=== PATIENT | female | born 1940 | race Caucasian/White ===

== ENCOUNTER 2021-08-01 09:45 | Outpatient (CLI) | payer MEDICARE ==
[2021-08-01 23:17] LABS: SARS-CoV-2 PCR by NAA Not Detected (NotDetected)
== END 2021-08-01 09:46 | disposition home or self-care (01) ==
LOC: CSHLAB 09:45
PROVIDERS: ATTEND Internal Medicine Critical Care Medicine
DX: Z01.812 Encounter for preprocedural laboratory examination (principal); Z20.822 Contact with and (suspected) exposure to COVID-19
CPT/HCPCS: U0003; U0005

== ENCOUNTER 2021-08-06 09:29 | Outpatient (CLI) | payer MEDICARE, BC | END 2021-08-06 09:30 | disposition home or self-care (01) | LOC: CSHCP 09:29 | PROVIDERS: ATTEND Internal Medicine Critical Care Medicine | DX: J84.10 Pulmonary fibrosis, unspecified (principal) | CPT/HCPCS: 94060; 94726; 94729; 94760 ==

== ENCOUNTER 2021-10-20 10:04 | Outpatient (CLI) | payer MEDICARE, BC ==
[2021-10-20 17:30] LABS: SARS-CoV-2 PCR by NAA Not Detected (NotDetected)
== END 2021-10-20 10:05 | disposition home or self-care (01) ==
LOC: CSHLAB 10:04
PROVIDERS: ATTEND Internal Medicine Cardiovascular Disease
DX: Z20.822 Contact with and (suspected) exposure to COVID-19 (principal)
CPT/HCPCS: U0003; U0005

== ENCOUNTER 2021-10-22 11:53 | Day surgery (SDC) | payer MEDICARE, BC ==
[2021-10-22 12:56] VITALS: BP 170/72; TEMP 97.8
[2021-10-22] MEDS ORDERED: FLU VACC QS2021-22(65YR UP)/PF 240 MCG/0.7 ML SYRINGE IM ONE (13:15)
== END 2021-10-22 15:09 | disposition home or self-care (01) ==
LOC: CSHSDC 11:53
PROVIDERS: ATTEND Internal Medicine Cardiovascular Disease
DX: I34.0 Nonrheumatic mitral (valve) insufficiency (principal); I25.10 Atherosclerotic heart disease of native coronary artery without angina pectoris; I10 Essential (primary) hypertension; E78.5 Hyperlipidemia, unspecified; I27.20 Pulmonary hypertension, unspecified; G47.30 Sleep apnea, unspecified; E10.9 Type 1 diabetes mellitus without complications; Z79.899 Other long term (current) drug therapy; Z79.82 Long term (current) use of aspirin; Z79.4 Long term (current) use of insulin
CPT/HCPCS: 93312

== ENCOUNTER 2022-05-29 14:24 | Inpatient (IN) | payer MEDICARE, BC ==
[2022-05-29] MEDS ORDERED: Adenosine 6 MG/2 ML VIAL ONE (14:41)
[2022-05-29] MEDS ORDERED: Midazolam HCl 2 mg/2 ml Vial ONE ×2 (14:53→16:09)
[2022-05-29 15:04] LABS: #Basophils 0.1 10x3/uL (0.0-0.2); #Monocytes 0.6 10x3/uL (0.0-1.1); #Neutrophils 6.5 10x3/uL (1.5-8.4); %Basophils 0.5 % (0.0-2.0); %Eosinophils 0.2 % (0.0-6.0); %Lymphocytes 21.6 % (18.0-47.0); %Monocytes 6.1 % (0.0-10.0); %Neutrophils 71.2 % (40.0-75.0); Mean Corpuscular HGB CONC 31.6 g/dL (32.0-36.0); Mean Corpuscular Volume 79.2 fl (81.6-98.3); Mean Platelet Volume 11.7 fl (7.4-10.4); Platelet Count 212 10x3/uL (150-450); RBC Distribution Width 15.8 % (11.5-14.5); White Blood Cell (WBC) Count 9.2 10x3/uL (3.5-10.5)
[2022-05-29 15:05] LABS: ALT (SGPT) 16 U/L (8-55); AST (SGOT) 25 U/L (5-34); Albumin 4.6 g/dL (3.4-4.8); Alkaline Phosphatase 67 U/L (40-110); Anion Gap 15 mmol/L (10-20); BUN (Urea Nitrogen) 21 mg/dL (9.8-20.1); Bilirubin, Total 0.8 mg/dL (0.2-1.2); Calc. Creatinine Clearance 0 mL/min (70-130); Calcium 9.4 mg/dL (7.8-10.44); Carbon Dioxide 22 mmol/L (23-31); Chloride 103 mmol/L (98-107); Estimated GFR 75; Globulin 2.9 g/dL (2.4-3.5); Glucose 78 mg/dL (83-110); Potassium 4.1 mmol/L (3.5-5.1); Protein, Total 7.5 g/dL (5.8-8.1); Sodium 136 mmol/L (136-145)
[2022-05-29] MEDS ORDERED: Amiodarone 150 MG/3 ML VIAL ONE ×2 (15:18→16:12)
[2022-05-29] MEDS ORDERED: Amiodarone In Dextrose 200 ML ONE (15:40)
[2022-05-29] MEDS ORDERED: Diltiazem 125 MG/25 ML ONE (16:31)
[2022-05-29 16:56] LABS: CKMB 4.4 ng/mL (0-6.6); Magnesium 1.8 mg/dL (1.6-2.6)
[2022-05-29] MEDS ORDERED: Aspirin 325 MG TAB ONE (17:07)
[2022-05-29 17:25] LABS: Troponin I 0.043 ng/mL (< 0.028)
[2022-05-29 18:06] VITALS: BMI 28.3
[2022-05-29] MEDS ORDERED: Dextrose 50% Abboject 50 ML SYRINGE SLOW IVP PRN (18:32)
[2022-05-29] MEDS ORDERED: Acetaminophen 325 MG TAB PO PRN (18:32)
[2022-05-29] MEDS ORDERED: Dextrose 5% in Water 1,000 ML IV PRN (18:32)
[2022-05-29] MEDS ORDERED: Ondansetron ODT 4 MG TAB PO PRN (18:32)
[2022-05-29] MEDS ORDERED: Acetaminophen 650 MG Suppository PR PRN (18:32)
[2022-05-29] MEDS ORDERED: Ondansetron PF 4 MG/2 ML Vial IVP PRN (18:32)
[2022-05-29] MEDS ORDERED: Adenosine 6 MG/2 ML VIAL IVP PRN (18:35)
[2022-05-29] MEDS ORDERED: Adenosine 6 MG/2 ML VIAL IVP SCH (18:45)
[2022-05-29] MEDS ORDERED: Digoxin 0.5 MG/2 ML AMP SLOW IVP PRN (19:32)
[2022-05-29] MEDS: Sodium Chloride 0.9% 1,000 ML IV SCH (19:44)
[2022-05-29] MEDS ORDERED: Diltiazem 125 MG, Admixture Fee 1 EACH in Sodium Chloride 0.9% 100 ML IVPB SCH (19:45)
[2022-05-29] MEDS: Apixaban 5 MG TAB PO SCH (20:08)
[2022-05-29 20:20] LABS: Troponin I 0.053 ng/mL (< 0.028)
[2022-05-29 20:33] LABS: Free T4 (Free Thyroxine) 1.14 ng/dL (0.70-1.48); Thyroid Stimulating Hormone 1.1166 uIU/mL (0.35-4.94)
[2022-05-29 22:25] LABS: SARS-CoV-2 NAA Rapid Test Not Detected (NotDetected)
[2022-05-30 04:17] LABS: Anion Gap 20 mmol/L (10-20); BUN (Urea Nitrogen) 14 mg/dL (9.8-20.1); Calc. Creatinine Clearance 72 mL/min (70-130); Calcium 8.7 mg/dL (7.8-10.44); Carbon Dioxide 17 mmol/L (23-31); Cardiac Risk 2.2 (Less than 4.5); Chloride 104 mmol/L (98-107); Cholesterol 108 mg/dl (< 200 Desired); Estimated GFR 81; Glucose 251 mg/dL (83-110); HDL Cholesterol 49 mg/dL (>60 Neg Risk); LDL Cholesterol, Calculated 48 mg/dL; Potassium 4.6 mmol/L (3.5-5.1); Sodium 136 mmol/L (136-145); Triglycerides 53 mg/dL (Less than 150)
[2022-05-30] MEDS: Nitroglycerin 2% Ointment 1 INCH/1 GM Packet TOP SCH ×3 (06:04→21:24)
[2022-05-30] MEDS ORDERED: Aspirin Chewable 81 MG TAB PO SCH (09:00)
[2022-05-30] MEDS ORDERED: DAPAGLIFLOZIN PROPANEDIOL 5 MG PO SCH (09:00)
[2022-05-30] MEDS: HumaLOG 300 UNITS/3 ML VIAL SC PRN ×3 (09:01→21:25)
[2022-05-30] MEDS: Sodium Chloride 0.9% 1,000 ML IV SCH ×2 (09:45→14:04)
[2022-05-30] MEDS ORDERED: Enoxaparin Sodium 80 MG/0.8 ML SYRINGE SC SCH ×3 (10:00→21:00)
[2022-05-30] MEDS: DULoxetine 30 MG CAP PO SCH (10:47)
[2022-05-30] MEDS: Apixaban 5 MG TAB PO SCH ×2 (10:47→21:24)
[2022-05-30] MEDS: Aluminum & Magnesium Hydroxide 60 ML, Lidocaine 2% Viscous Solution 30 ML, diphenhydrAM... SSW SCH ×2 (15:30→21:25)
[2022-05-31] MEDS: HumaLOG 300 UNITS/3 ML VIAL SC PRN (05:33)
[2022-05-31] MEDS: Nitroglycerin 2% Ointment 1 INCH/1 GM Packet TOP SCH ×2 (05:34→13:35)
[2022-05-31] MEDS: Sodium Chloride 0.9% 1,000 ML IV SCH (05:47)
[2022-05-31] MEDS ORDERED: HumaLOG 300 UNITS/3 ML VIAL SC PRN (08:15)
[2022-05-31] MEDS: Aluminum & Magnesium Hydroxide 60 ML, Lidocaine 2% Viscous Solution 30 ML, diphenhydrAM... SSW SCH ×2 (08:28→13:35)
[2022-05-31] MEDS: DULoxetine 30 MG CAP PO SCH (08:28)
[2022-05-31] MEDS: Apixaban 5 MG TAB PO SCH (08:28)
[2022-05-31] MEDS ORDERED: Aspirin 300 MG Suppository PR PRN (09:00)
[2022-05-31] MEDS ORDERED: Aspirin 81 mg Enteric Coated Tablet PO SCH (09:00)
[2022-05-31] MEDS ORDERED: Pantoprazole 40 MG VIAL IVP SCH (09:00)
[2022-05-31] MEDS ORDERED: Atorvastatin Calcium 20 MG TAB PO SCH (09:00)
[2022-05-31 11:27] VITALS: TEMP 98.5
[2022-05-31 15:32] VITALS: BP 116/57
== END 2022-05-31 15:05 | disposition home or self-care (01) | DRG 309 ==
LOC: CSHERS 14:24 → CSHICU 16:40 → CSHTELE 05-30 15:50
PROVIDERS: ADMIT Family Medicine; ATTEND Family Medicine
PROC: 5A2204Z Restoration of Cardiac Rhythm, Single (ICD-10-PCS; principal; 2022-05-29)
DX: I47.1 Supraventricular tachycardia (principal); I24.8 Other forms of acute ischemic heart disease; I48.91 Unspecified atrial fibrillation; I47.2 Ventricular tachycardia; Z20.822 Contact with and (suspected) exposure to COVID-19; E11.9 Type 2 diabetes mellitus without complications; I49.3 Ventricular premature depolarization; I25.10 Atherosclerotic heart disease of native coronary artery without angina pectoris; I10 Essential (primary) hypertension; Z96.652 Presence of left artificial knee joint; E78.5 Hyperlipidemia, unspecified; Z88.8 Allergy status to other drugs, medicaments and biological substances; Z79.82 Long term (current) use of aspirin; Z79.899 Other long term (current) drug therapy; Z79.4 Long term (current) use of insulin; Z95.5 Presence of coronary angioplasty implant and graft; Z90.49 Acquired absence of other specified parts of digestive tract; Z90.89 Acquired absence of other organs; Z79.01 Long term (current) use of anticoagulants; I25.2 Old myocardial infarction; Z98.41 Cataract extraction status, right eye; Z98.42 Cataract extraction status, left eye
CPT/HCPCS: 36415; 36416; 71045; 80048; 80053; 80061; 82553; 83735; 83880; 84439; 84443; 84481; 84484; 85025; 92950; 93005; 93010; 96365; 96366; 96368; 96375; 96376; C9113; J0153; J0282; J1650; J1815; J2250; J2405; J3490; J7050; Q0162; Q0163; U0002

== ENCOUNTER 2022-06-03 09:50 | Emergency (ER) | payer MEDICARE, BC ==
[2022-06-03 10:42] LABS: #Eosinphils 0.1 10x3/uL (0.0-0.5); #Monocytes 0.3 10x3/uL (0.0-1.1); #Neutrophils 3.4 10x3/uL (1.5-8.4); %Basophils 0.6 % (0.0-2.0); %Lymphocytes 22.6 % (18.0-47.0); %Monocytes 6.7 % (0.0-10.0); %Neutrophils 67.7 % (40.0-75.0); Hemoglobin 11.9 g/dL (12.0-15.5); Mean Corpuscular HGB CONC 31.5 g/dL (32.0-36.0); Mean Corpuscular Hemoglobin 24.9 pg (27.0-33.0); Mean Corpuscular Volume 79.1 fl (81.6-98.3); Mean Platelet Volume 11.7 fl (7.4-10.4); Platelet Count 175 10x3/uL (150-450); Red Blood Cell (RBC) Count 4.78 10x6/uL (3.90-5.03)
[2022-06-03 10:46] LABS: ALT (SGPT) 34 U/L (8-55); AST (SGOT) 49 U/L (5-34); Albumin 4.1 g/dL (3.4-4.8); Alkaline Phosphatase 78 U/L (40-110); Anion Gap 14 mmol/L (10-20); BUN (Urea Nitrogen) 13 mg/dL (9.8-20.1); Bilirubin, Total 0.8 mg/dL (0.2-1.2); Calc. Creatinine Clearance 0 mL/min (70-130); Calcium 9.2 mg/dL (7.8-10.44); Carbon Dioxide 27 mmol/L (23-31); Chloride 102 mmol/L (98-107); Estimated GFR 76; Globulin 2.3 g/dL (2.4-3.5); Glucose 216 mg/dL (83-110); Potassium 3.9 mmol/L (3.5-5.1); Protein, Total 6.4 g/dL (5.8-8.1); Sodium 139 mmol/L (136-145)
== END 2022-06-03 13:38 | disposition home or self-care (01) ==
LOC: CSHERS 09:50
DX: R07.9 Chest pain, unspecified (principal); I25.10 Atherosclerotic heart disease of native coronary artery without angina pectoris; I48.91 Unspecified atrial fibrillation; E11.9 Type 2 diabetes mellitus without complications
CPT/HCPCS: 36416; 71045; 80053; 84484; 85025; 93005

== ENCOUNTER 2022-06-16 11:32 | Inpatient (IN) | payer MEDICARE, BC ==
[2022-06-16 12:09] LABS: #Eosinphils 0.1 10x3/uL (0.0-0.5); #Monocytes 0.7 10x3/uL (0.0-1.1); #Neutrophils 4.3 10x3/uL (1.5-8.4); %Basophils 0.5 % (0.0-2.0); %Lymphocytes 29.5 % (18.0-47.0); %Monocytes 9.2 % (0.0-10.0); %Neutrophils 59.3 % (40.0-75.0); Hemoglobin 11.5 g/dL (12.0-15.5); Mean Corpuscular Hemoglobin 24.4 pg (27.0-33.0); Mean Corpuscular Volume 78.6 fl (81.6-98.3); Mean Platelet Volume 11.4 fl (7.4-10.4); Platelet Count 250 10x3/uL (150-450); RBC Distribution Width 17.2 % (11.5-14.5); Red Blood Cell (RBC) Count 4.72 10x6/uL (3.90-5.03); White Blood Cell (WBC) Count 7.3 10x3/uL (3.5-10.5)
[2022-06-16] MEDS ORDERED: Diltiazem 125 MG in Sodium Chloride 0.9% 100 ML IVPB SCH (12:15)
[2022-06-16 12:16] LABS: ALT (SGPT) 17 U/L (8-55); AST (SGOT) 21 U/L (5-34); Albumin 4.1 g/dL (3.4-4.8); Alkaline Phosphatase 77 U/L (40-110); Anion Gap 14 mmol/L (10-20); BUN (Urea Nitrogen) 14 mg/dL (9.8-20.1); Bilirubin, Total 0.8 mg/dL (0.2-1.2); CK (CPK) 97 U/L (29-168); Calc. Creatinine Clearance 0 mL/min (70-130); Calcium 9.2 mg/dL (7.8-10.44); Carbon Dioxide 24 mmol/L (23-31); Chloride 104 mmol/L (98-107); Estimated GFR 81; Globulin 2.7 g/dL (2.4-3.5); Glucose 108 mg/dL (83-110); Lipase 8 U/L (8-78); Potassium 4.1 mmol/L (3.5-5.1); Protein, Total 6.8 g/dL (5.8-8.1); Sodium 138 mmol/L (136-145)
[2022-06-16 14:38] LABS: SARS-CoV-2 NAA Rapid Test Not Detected (NotDetected)
[2022-06-16] MEDS ORDERED: Acetaminophen 650 MG Suppository PR PRN (15:01)
[2022-06-16] MEDS ORDERED: Acetaminophen 325 MG TAB PO PRN (15:01)
[2022-06-16 15:12] LABS: Troponin I Less than 0.010 ng/mL (< 0.028)
[2022-06-16] MEDS ORDERED: Dextrose 5% in Water 1,000 ML IV PRN (15:22)
[2022-06-16] MEDS ORDERED: Dextrose 50% Abboject 50 ML SYRINGE SLOW IVP PRN (15:22)
[2022-06-16] MEDS ORDERED: Insulin Regular 300 UNITS/3 ML VIAL SC PRN ×2 (15:22)
[2022-06-16 19:09] LABS: Troponin I Less than 0.010 ng/mL (< 0.028)
[2022-06-16] MEDS ORDERED: Apixaban 5 MG TAB PO SCH (21:00)
[2022-06-16] MEDS ORDERED: Pantoprazole 40 MG VIAL ONE (21:44)
[2022-06-17 03:46] LABS: #Eosinphils 0.1 10x3/uL (0.0-0.5); #Monocytes 0.5 10x3/uL (0.0-1.1); #Neutrophils 3.1 10x3/uL (1.5-8.4); %Basophils 0.7 % (0.0-2.0); %Eosinophils 2.4 % (0.0-6.0); %Lymphocytes 32.5 % (18.0-47.0); %Monocytes 9.1 % (0.0-10.0); %Neutrophils 54.8 % (40.0-75.0); Hemoglobin 10.7 g/dL (12.0-15.5); Mean Corpuscular HGB CONC 31.7 g/dL (32.0-36.0); Mean Corpuscular Hemoglobin 25.1 pg (27.0-33.0); Mean Corpuscular Volume 79.2 fl (81.6-98.3); Mean Platelet Volume 11.8 fl (7.4-10.4); Platelet Count 213 10x3/uL (150-450); RBC Distribution Width 17.2 % (11.5-14.5); Red Blood Cell (RBC) Count 4.27 10x6/uL (3.90-5.03); White Blood Cell (WBC) Count 5.7 10x3/uL (3.5-10.5)
[2022-06-17 04:03] LABS: Anion Gap 12 mmol/L (10-20); BUN (Urea Nitrogen) 14 mg/dL (9.8-20.1); Calc. Creatinine Clearance 0 mL/min (70-130); Calcium 8.6 mg/dL (7.8-10.44); Carbon Dioxide 26 mmol/L (23-31); Chloride 104 mmol/L (98-107); Estimated GFR 88; Glucose 174 mg/dL (83-110); Potassium 4.2 mmol/L (3.5-5.1); Sodium 138 mmol/L (136-145)
== END 2022-06-17 07:30 | disposition short-term general hospital (02) | DRG 310 ==
LOC: CSHERS 11:32 → CSHERHOLD 19:40
PROVIDERS: ADMIT Student in an Organized Health Care Education/Training Program; ATTEND Physician Assistant
DX: I47.1 Supraventricular tachycardia (principal); E11.9 Type 2 diabetes mellitus without complications; I10 Essential (primary) hypertension; I25.10 Atherosclerotic heart disease of native coronary artery without angina pectoris; K21.9 Gastro-esophageal reflux disease without esophagitis; Z96.652 Presence of left artificial knee joint; Z96.1 Presence of intraocular lens; M34.9 Systemic sclerosis, unspecified; Z96.41 Presence of insulin pump (external) (internal); E78.2 Mixed hyperlipidemia; I73.00 Raynaud's syndrome without gangrene; Z20.822 Contact with and (suspected) exposure to COVID-19; Z98.42 Cataract extraction status, left eye; Z98.890 Other specified postprocedural states; Z88.8 Allergy status to other drugs, medicaments and biological substances; Z95.5 Presence of coronary angioplasty implant and graft; Z90.49 Acquired absence of other specified parts of digestive tract; Z90.89 Acquired absence of other organs; Z79.82 Long term (current) use of aspirin; Z79.4 Long term (current) use of insulin; Z79.899 Other long term (current) drug therapy; Z98.41 Cataract extraction status, right eye
CPT/HCPCS: 36415; 36416; 71045; 80048; 80053; 82550; 83690; 84443; 84484; 85025; 93005; C9113; J3490; U0002

== ENCOUNTER 2022-06-21 08:41 | Emergency (ER) | payer MEDICARE, BC ==
[2022-06-21 09:09] LABS: #Eosinphils 0.1 10x3/uL (0.0-0.5); #Monocytes 0.5 10x3/uL (0.0-1.1); #Neutrophils 3.7 10x3/uL (1.5-8.4); %Basophils 0.7 % (0.0-2.0); %Eosinophils 1.8 % (0.0-6.0); %Lymphocytes 28.4 % (18.0-47.0); %Monocytes 7.9 % (0.0-10.0); %Neutrophils 60.9 % (40.0-75.0); Hemoglobin 10.8 g/dL (12.0-15.5); Mean Corpuscular HGB CONC 31.9 g/dL (32.0-36.0); Mean Corpuscular Hemoglobin 24.9 pg (27.0-33.0); Mean Corpuscular Volume 78.1 fl (81.6-98.3); Mean Platelet Volume 11.7 fl (7.4-10.4); Platelet Count 205 10x3/uL (150-450); RBC Distribution Width 17.4 % (11.5-14.5); Red Blood Cell (RBC) Count 4.34 10x6/uL (3.90-5.03); White Blood Cell (WBC) Count 6.1 10x3/uL (3.5-10.5)
[2022-06-21 10:01] LABS: CKMB 1.6 ng/mL (0-6.6)
[2022-06-21 11:04] LABS: ALT (SGPT) 70 U/L (8-55); AST (SGOT) 71 U/L (5-34); Albumin 3.9 g/dL (3.4-4.8); Alkaline Phosphatase 121 U/L (40-110); Anion Gap 14 mmol/L (10-20); BUN (Urea Nitrogen) 16 mg/dL (9.8-20.1); Bilirubin, Total 0.8 mg/dL (0.2-1.2); Calc. Creatinine Clearance 0 mL/min (70-130); Carbon Dioxide 24 mmol/L (23-31); Chloride 103 mmol/L (98-107); Estimated GFR 85; Globulin 2.4 g/dL (2.4-3.5); Glucose 193 mg/dL (83-110); Potassium 4.5 mmol/L (3.5-5.1); Protein, Total 6.3 g/dL (5.8-8.1); Sodium 136 mmol/L (136-145)
== END 2022-06-21 14:16 | disposition home or self-care (01) ==
LOC: CSHERS 08:41
DX: J18.9 Pneumonia, unspecified organism (principal); I25.2 Old myocardial infarction; I25.10 Atherosclerotic heart disease of native coronary artery without angina pectoris; E11.9 Type 2 diabetes mellitus without complications; I48.91 Unspecified atrial fibrillation
CPT/HCPCS: 71045; 80053; 82553; 84484; 85025; 93005

== ENCOUNTER 2022-10-08 12:26 | Outpatient (CLI) | payer MEDICARE, BC | END 2022-10-08 12:27 | disposition home or self-care (01) | LOC: CSHMRI 12:26 | PROVIDERS: ATTEND Psychiatry & Neurology Neurology | DX: R41.3 Other amnesia (principal) | CPT/HCPCS: 70553 ==

== ENCOUNTER 2022-10-16 01:33 | Inpatient (IN) | payer MEDICARE, BC ==
[2022-10-16 02:16] LABS: Hemoglobin 7.1 g/dL (12.0-15.5); Mean Corpuscular HGB CONC 29.5 g/dL (32.0-36.0); Mean Corpuscular Hemoglobin 18.9 pg (27.0-33.0); Mean Corpuscular Volume 64.3 fl (81.6-98.3); Platelet Count 239 10x3/uL (150-450); RBC Distribution Width 18.3 % (11.5-14.5); Red Blood Cell (RBC) Count 3.75 10x6/uL (3.90-5.03); White Blood Cell (WBC) Count 6.9 10x3/uL (3.5-10.5)
[2022-10-16 02:19] LABS: INR-International Normal Ratio 1.1; PTT 26.3 sec (22.0-33.0); Prothrombin Time 11.6 sec (9.5-12.1)
[2022-10-16 02:25] LABS: ALT (SGPT) 23 U/L (8-55); AST (SGOT) 29 U/L (5-34); Albumin 3.7 g/dL (3.4-4.8); Alkaline Phosphatase 77 U/L (40-110); Anion Gap 13 mmol/L (10-20); BUN (Urea Nitrogen) 23 mg/dL (9.8-20.1); Bilirubin, Total 0.6 mg/dL (0.2-1.2); Calc. Creatinine Clearance 0 mL/min (70-130); Calcium 8.6 mg/dL (7.8-10.44); Carbon Dioxide 23 mmol/L (23-31); Chloride 103 mmol/L (98-107); Estimated GFR 70; Globulin 2.2 g/dL (2.4-3.5); Glucose 282 mg/dL (83-110); Magnesium 1.8 mg/dL (1.6-2.6); Potassium 4.6 mmol/L (3.5-5.1); Protein, Total 5.9 g/dL (5.8-8.1); Sodium 134 mmol/L (136-145)
[2022-10-16] MEDS ORDERED: Dextrose 50% Abboject 50 ML SYRINGE SLOW IVP PRN (02:58)
[2022-10-16] MEDS ORDERED: HYDROcodone/Acetaminophen 5/325 mg Tablet PO PRN (02:58)
[2022-10-16] MEDS ORDERED: Guaifenesin DM 100-10/5 ML UDCUP PO PRN (02:58)
[2022-10-16] MEDS ORDERED: Senokot S 8.6-50 MG TAB PO PRN (02:58)
[2022-10-16] MEDS ORDERED: Calcium Carbonate 500 MG ChewTAB PO PRN (02:58)
[2022-10-16] MEDS ORDERED: Acetaminophen 325 MG TAB PO PRN (02:58)
[2022-10-16] MEDS ORDERED: Ondansetron PF 4 MG/2 ML Vial IVP PRN (02:58)
[2022-10-16] MEDS ORDERED: Dextrose 5% in Water 1,000 ML IV PRN (02:58)
[2022-10-16 03:40] LABS: MDiff Complete? YES
[2022-10-16 03:48] LABS: Eosinophils 3 % (0-10); Lymphocytes 28 % (21-51); Monocytes 8 % (0-10); Neutrophil 61 % (42-75)
[2022-10-16 03:49] LABS: Anisocytosis MODERATE=16-30 cells (100X) (0-5/hpf); Hypochromia MARKED = >30 cells (100X) (0-5/hpf); Microcytosis SLIGHT = 6-15 cells (100X) (0-5/hpf); Reflex for Review?? YES
[2022-10-16 03:50] LABS: Elliptocytes SLIGHT = 2-5 cells (100X) (0-1/hpf); Platelet Clumps MODERATE; Platelet Morphology Comment Appears Adequate; Schistocytes SLIGHT = 2-5 cells (100X) (0-1/hpf); Tear Drops SLIGHT = 2-5 cells (100X) (0-1/hpf)
[2022-10-16 04:50] LABS: SARS-CoV-2 NAA Rapid Test Not Detected (NotDetected)
[2022-10-16] MEDS ORDERED: Furosemide 40 MG/4 ML VIAL ONE (05:44)
[2022-10-16] MEDS ORDERED: Pantoprazole 40 MG VIAL ONE (05:45)
[2022-10-16] MEDS: Pantoprazole 40 MG VIAL IVP SCH ×2 (05:56→17:30)
[2022-10-16] MEDS ORDERED: Furosemide 40 MG/4 ML VIAL SLOW IVP SCH (06:00)
[2022-10-16 06:49] LABS: Iron 233 ug/dL (50-170); Iron Binding Capacity, Total 411 mcg/dL (265-497)
[2022-10-16] MEDS ORDERED: Atorvastatin Calcium 10 MG TAB ONE (09:08)
[2022-10-16] MEDS: Atorvastatin Calcium 20 MG TAB PO SCH (09:49)
[2022-10-16] MEDS: Empagliflozin 10 MG TAB PO SCH (09:50)
[2022-10-16] MEDS: DULoxetine 30 MG CAP PO SCH (09:50)
[2022-10-16] MEDS: Icosapent Ethyl 1 GM CAPSULE PO SCH ×4 (09:51→21:33)
[2022-10-16] MEDS: Ramipril 5 MG CAP PO SCH (09:51)
[2022-10-16] MEDS ORDERED: Cholecalciferol 1,000 UNITS (25 MCG) TAB ONE (10:04)
[2022-10-16] MEDS: Cholecalciferol 1,000 UNITS (25 MCG) TAB PO SCH (10:11)
[2022-10-16 10:36] LABS: #Eosinphils 0.1 10x3/uL (0.0-0.5); #Monocytes 0.6 10x3/uL (0.0-1.1); #Neutrophils 5.6 10x3/uL (1.5-8.4); %Basophils 0.5 % (0.0-2.0); %Lymphocytes 16.7 % (18.0-47.0); %Monocytes 7.7 % (0.0-10.0); %Neutrophils 73.6 % (40.0-75.0); Hemoglobin 9.4 g/dL (12.0-15.5); Mean Corpuscular Hemoglobin 21.1 pg (27.0-33.0); Mean Corpuscular Volume 68.1 fl (81.6-98.3); Platelet Count 235 10x3/uL (150-450); RBC Distribution Width 22.8 % (11.5-14.5); Red Blood Cell (RBC) Count 4.45 10x6/uL (3.90-5.03); White Blood Cell (WBC) Count 7.7 10x3/uL (3.5-10.5)
[2022-10-16] MEDS ORDERED: FLU VACC QS2022-23(65YR UP)/PF 240 MCG/0.7 ML SYRINGE IM ONE (15:15)
[2022-10-16] MEDS ORDERED: Donepezil HCl 5 MG TAB PO SCH (21:00)
[2022-10-16 22:03] VITALS: BMI 29.4
[2022-10-17] MEDS: Pantoprazole 40 MG VIAL IVP SCH (05:39)
[2022-10-17 06:06] LABS: Anion Gap 13 mmol/L (10-20); BUN (Urea Nitrogen) 20 mg/dL (9.8-20.1); Calc. Creatinine Clearance 74 mL/min (70-130); Carbon Dioxide 25 mmol/L (23-31); Chloride 104 mmol/L (98-107); Estimated GFR 84; Glucose 85 mg/dL (83-110); Potassium 3.9 mmol/L (3.5-5.1); Sodium 138 mmol/L (136-145)
[2022-10-17 06:35] LABS: #Basophils 0.1 10x3/uL (0.0-0.2); #Eosinphils 0.2 10x3/uL (0.0-0.5); #Monocytes 0.7 10x3/uL (0.0-1.1); #Neutrophils 4.4 10x3/uL (1.5-8.4); %Basophils 0.9 % (0.0-2.0); %Eosinophils 2.9 % (0.0-6.0); %Lymphocytes 22.7 % (18.0-47.0); %Neutrophils 63.2 % (40.0-75.0); Hemoglobin 9.4 g/dL (12.0-15.5); Mean Corpuscular HGB CONC 30.8 g/dL (32.0-36.0); Mean Corpuscular Volume 68.1 fl (81.6-98.3); Platelet Count 228 10x3/uL (150-450); RBC Distribution Width 23.2 % (11.5-14.5); Red Blood Cell (RBC) Count 4.48 10x6/uL (3.90-5.03)
[2022-10-17] MEDS: Furosemide 40 MG TAB PO SCH ×2 (06:41→09:25)
[2022-10-17 07:07] LABS: Anisocytosis MODERATE=16-30 cells (100X) (0-5/hpf); Elliptocytes SLIGHT = 2-5 cells (100X) (0-1/hpf); Large Platelets SLIGHT; Microcytosis SLIGHT = 6-15 cells (100X) (0-5/hpf); Platelet Morphology Comment Appears Adequate; Polychromasia SLIGHT = 2-3 cells (100X) (0-2/hpf)
[2022-10-17] MEDS: DULoxetine 30 MG CAP PO SCH (09:25)
[2022-10-17] MEDS: Atorvastatin Calcium 20 MG TAB PO SCH (09:25)
[2022-10-17] MEDS: Cholecalciferol 1,000 UNITS (25 MCG) TAB PO SCH (09:25)
[2022-10-17] MEDS: Icosapent Ethyl 1 GM CAPSULE PO SCH ×2 (09:25→14:11)
[2022-10-17] MEDS: Ramipril 5 MG CAP PO SCH (09:28)
[2022-10-17] MEDS: Empagliflozin 10 MG TAB PO SCH (09:28)
[2022-10-17 12:18] VITALS: BP 126/62; TEMP 98.3
== END 2022-10-17 15:36 | disposition home or self-care (01) | DRG 812 ==
LOC: CSHERS 01:33 → CSHERHOLD 03:50 → CSHTELE 13:27
PROVIDERS: ADMIT Student in an Organized Health Care Education/Training Program; ATTEND Internal Medicine
PROC: 30233N1 Transfusion of Nonautologous Red Blood Cells into Peripheral Vein, Percutaneous Approach (ICD-10-PCS; principal; 2022-10-16)
DX: D50.9 Iron deficiency anemia, unspecified (principal); I25.10 Atherosclerotic heart disease of native coronary artery without angina pectoris; I10 Essential (primary) hypertension; E78.5 Hyperlipidemia, unspecified; K21.9 Gastro-esophageal reflux disease without esophagitis; E11.9 Type 2 diabetes mellitus without complications; F03.90 Unspecified dementia, unspecified severity, without behavioral disturbance, psychotic disturbance, mood disturbance, and anxiety; Z96.652 Presence of left artificial knee joint; I48.91 Unspecified atrial fibrillation; E78.00 Pure hypercholesterolemia, unspecified; Z20.822 Contact with and (suspected) exposure to COVID-19; Z88.8 Allergy status to other drugs, medicaments and biological substances; Z79.82 Long term (current) use of aspirin; Z79.899 Other long term (current) drug therapy; Z79.4 Long term (current) use of insulin; Z79.01 Long term (current) use of anticoagulants; Z95.5 Presence of coronary angioplasty implant and graft; Z90.49 Acquired absence of other specified parts of digestive tract; Z98.890 Other specified postprocedural states
CPT/HCPCS: 36415; 36416; 36430; 71045; 80048; 80053; 82728; 83540; 83550; 83630; 83735; 84484; 85025; 85060; 85610; 85730; 86850; 86900; 86901; 93005; C9113; J1940; P9016; U0002

== ENCOUNTER 2022-12-01 17:00 | Emergency (ER) | payer MEDICARE, BC ==
[2022-12-01] MEDS ORDERED: Morphine 4 MG/ML VIAL ONE (20:48)
[2022-12-01] MEDS ORDERED: Ondansetron ODT 4 MG TAB ONE (21:56)
== END 2022-12-01 22:07 | disposition home or self-care (01) ==
LOC: CSHERS 17:00
DX: M25.532 Pain in left wrist (principal); W18.30XA Fall on same level, unspecified, initial encounter; Z79.82 Long term (current) use of aspirin; Z79.899 Other long term (current) drug therapy; Z79.01 Long term (current) use of anticoagulants
CPT/HCPCS: 36416; 96372; J2270; Q0162

== ENCOUNTER 2022-12-14 09:09 | Outpatient (CLI) | payer MEDICARE, BC | END 2022-12-14 09:10 | disposition home or self-care (01) | LOC: CSHCP 09:09 | PROVIDERS: ATTEND Internal Medicine Critical Care Medicine | DX: M34.9 Systemic sclerosis, unspecified (principal); J44.9 Chronic obstructive pulmonary disease, unspecified | CPT/HCPCS: 94060; 94726; 94729; 94760 ==

== ENCOUNTER 2023-01-12 10:00 | Outpatient (CLI) | payer MEDICARE, BC | END 2023-01-12 10:01 | disposition home or self-care (01) | LOC: CSHCT 10:00 | PROVIDERS: ATTEND Internal Medicine Critical Care Medicine | DX: M34.9 Systemic sclerosis, unspecified (principal); J84.10 Pulmonary fibrosis, unspecified | CPT/HCPCS: 71250 ==

== ENCOUNTER 2023-07-06 08:51 | Outpatient (CLI) | payer MEDICARE, BC | END 2023-07-06 08:52 | disposition home or self-care (01) | LOC: CSHCP 08:51 | PROVIDERS: ATTEND Internal Medicine Critical Care Medicine | DX: J84.9 Interstitial pulmonary disease, unspecified (principal) | CPT/HCPCS: 94010; 94726; 94729 ==

== ENCOUNTER 2023-09-20 00:19 | Emergency (ER) | payer BC, MEDICARE ==
[2023-09-20 01:00] LABS: Bilirubin Neg (Negative); Blood, Urine 10 (Negative); Clarity Clear (Clear); Glucose, Urine (Dipstick) Normal (Negative); Ketone, Urine 5 mg/dL (Negative); Leukocyte 25 (Negative); Nitrite Negative (Negative); Protein, Urine (Dipstick) 30 mg/dl (Neg-Trace); Specific Gravity, Urine 1.015 (1.005-1.030); Urobilinogen Normal mg/dL (Less than 2)
[2023-09-20] MEDS ORDERED: Haloperidol 1 MG TAB PO SCH (01:00)
[2023-09-20 01:04] LABS: #Basophils 0.1 10x3/uL (0.0-0.2); #Eosinphils 0.2 10x3/uL (0.0-0.5); #Monocytes 0.6 10x3/uL (0.0-1.1); #Neutrophils 4.7 10x3/uL (1.5-8.4); %Basophils 0.7 % (0.0-2.0); %Eosinophils 2.1 % (0.0-6.0); %Lymphocytes 23.7 % (18.0-47.0); %Monocytes 7.6 % (0.0-10.0); %Neutrophils 65.3 % (40.0-75.0); Hematocrit 37.5 % (34.9-44.5); Hemoglobin 12.4 g/dL (12.0-15.5); Mean Corpuscular HGB CONC 33.1 g/dL (32.0-36.0); Mean Corpuscular Hemoglobin 28.6 pg (27.0-33.0); Mean Corpuscular Volume 86.6 fl (81.6-98.3); Mean Platelet Volume 10.4 fl (7.4-10.4); Platelet Count 266 10x3/uL (150-450); RBC Distribution Width 12.8 % (11.5-14.5); Red Blood Cell (RBC) Count 4.33 10x6/uL (3.90-5.03); White Blood Cell (WBC) Count 7.2 10x3/uL (3.5-10.5)
[2023-09-20 01:06] LABS: Amphetamine Not Detected (NotDetected); Barbiturates Screen Not Detected (NotDetected); Benzodiazepine Screen Not Detected (NotDetected); Cocaine Metabolite Screen Not Detected (NotDetected); Methadone Not Detected (NotDetected); Methamphetamine Not Detected (NotDetected); Opiate Screen Not Detected (NotDetected); Oxycodone Screen Not Detected (NotDetected); Phencyclidine (PCP) Not Detected (NotDetected); THC/Cannabinoid Screen Not Detected (NotDetected); Tricyclic Screen Not Detected (NotDetected)
[2023-09-20 01:07] LABS: RBC/HPF 0-3 HPF (0-3)
[2023-09-20 01:08] LABS: Bacteria/HPF None Seen HPF (None Seen); CAUTI Indications for Culture Alt mental st,lethar; Squamous Epithelial 0-3 HPF (0-3); WBC/HPF 0-3 HPF (0-3)
[2023-09-20 01:09] LABS: Urine Culture Reflex No No
[2023-09-20 01:18] LABS: ALT (SGPT) 11 U/L (8-55); AST (SGOT) 16 U/L (5-34); Acetaminophen Less than 10 mcg/mL (10.0-30.0); Alcohol Less than 10.0 mg/dL (Less than 10); Alkaline Phosphatase 69 U/L (40-110); Anion Gap 13 mmol/L (10-20); BUN (Urea Nitrogen) 13 mg/dL (9.8-20.1); Bilirubin, Total 0.5 mg/dL (0.2-1.2); Calc. Creatinine Clearance 0 mL/min (70-130); Carbon Dioxide 28 mmol/L (23-31); Chloride 100 mmol/L (98-107); Estimated GFR 79; Globulin 2.9 g/dL (2.4-3.5); Glucose 150 mg/dL (83-110); Magnesium 1.8 mg/dL (1.6-2.6); Protein, Total 6.9 g/dL (5.8-8.1); Salicylate Less than 8.0 mg/dL (15.0-30.0); Sodium 137 mmol/L (136-145)
== END 2023-09-20 01:51 | disposition home or self-care (01) ==
LOC: CSHERS 00:19
DX: F03.90 Unspecified dementia, unspecified severity, without behavioral disturbance, psychotic disturbance, mood disturbance, and anxiety (principal); F05 Delirium due to known physiological condition; I10 Essential (primary) hypertension; K21.9 Gastro-esophageal reflux disease without esophagitis; E11.9 Type 2 diabetes mellitus without complications; Z79.899 Other long term (current) drug therapy; Z79.82 Long term (current) use of aspirin
CPT/HCPCS: 36416; 70450; 71045; 80053; 80306; 80307; 81001; 83605; 83735; 84443; 85025